=== PATIENT | female | born 1970 | race Caucasian/White ===

== ENCOUNTER 2017-06-21 23:19 | Emergency (ER) | payer OTHER ==
[~2017-06-21] VITALS: Ht 170.2 cm; Wt 136.4 kg
[~2017-06-21 23:19] MED LIST: ALBU8.5H2 INHALATION; BENZ-12 PO; DOXY100C2 PO; DULO60CA42 PO; LISI-567 PO; LORA1TAB PO; OXYC5TAB72 PO; PRE20 PO; RANI-426 PO; TRAZ150T72 PO
[2017-06-21 23:27] VITALS: BP 161/102; PULSE 111; RESP 22; O2SAT 99
--- NOTE | 2017-06-21 23:33 | ED.REPORT ---
HPI-Chest Pain 40 and Over Date of Service Jun 21, 2017 ED Provider: Fady Sanders MD A 46 year old female with a history of morbid obesity, anxiety, asthma, hypertension, mitral valve prolapse, COPD, and diabetes mellitus presents to the ED with chest heaviness that began 3 hours prior to arrival. The pain radiates to her left biceps. Symptoms associated with the chest pain include heart palpations, nausea, SOB, and a recent cough. She took Maalox this evening to help relieve her indigestion. Patient is a former smoker. She denies any leg edema, vomiting or abdominal pain. Patient denies any recent injuries. Nursing Notes Stated Complaint: IRREGULAR HEART BEAT,PAIN/CHEST PRESSURE Chief Complaint: Chest Pain Nursing Notes Reviewed: Yes Allergies: Coded Allergies: aspirin (Verified Allergy, Unknown, Anaphylaxis, 04/22/16) erythromycin base (Verified Allergy, Unknown, 04/22/16) ketorolac tromethamine (Verified Allergy, Unknown, Anaphylaxis, 04/22/16) Uncoded Allergies: MSG (Allergy, Severe, Anaphylaxis, 12/14/13) "MYCINS" (Allergy, Unknown, 05/09/14) Scheduled Albuterol HFA (Proair HFA) 8.5 Gm Hfa.aer.ad 2 PUFFS INHALATION Q4H Doxycycline Hyclate (Doxycycline Hyclate) 100 Mg Capsule 100 MG PO BID Duloxetine (Cymbalta) 60 Mg Capsule. 60 MG PO DAILY Lisinopril (Lisinopril) 20 Mg Tablet 20 MG PO DAILY Omeprazole (Omeprazole) 20 Mg Tablet.dr 20 MG PO BID Prednisone (PredniSONE) 20 Mg Tablet 40 MG PO DAILY Ranitidine (Ranitidine) 75 Mg Tablet 75 MG PO DAILY Trazodone (Trazodone) 150 Mg Tablet 150 MG PO HS Scheduled PRN Benzonatate (Tessalon Perle) 100 Mg Capsule 100 MG PO TID PRN PRN For Cough Lorazepam (Lorazepam) 1 Mg Tablet 1 MG PO TID PRN PRN For Anxiety oxyCODONE (oxyCODONE) 5 Mg Tablet 5 MG PO Q4H PRN PRN For Pain General Time Seen by MD: 23:32 Chief Complaint Chest pain Hx Obtained From: Patient Arrived By: Walk-in Sudden in Onset?: No Onset Occurred: 1 - 4 hours ago (3 hours) Symptom Duration: Since onset Location: : Chest left: Chest right Quality: Heaviness Radiation: : Arm left Migration/Movement: Reports: None Severity: Current: Moderate Severity: Maximum: Moderate Associated with: Reports: Cough, non-productive, Nausea, Palpitations, Shortness of Breath, Denies: Vomiting Pertinent Negative: Pt denies other symptoms Recent Healthcare: No recent doctor visit, No recent hospitalization Risk Factors )( CAD Risk Stratification Diabetes mellitus Hypertension Risk factors reviewed )( TAD Risk Stratification Hypertension Risk factors reviewed )( PE Risk Stratification Risk factors reviewed Past Medical History Past Medical History Notes: Admit March 2016 for asthma exacerbation Past Medical History 1. Hypertension 2. Diabetes mellitus 3. Asthma 4. COPD 5. Cancer 6. Mitral valve prolase 7. Morbid obesity 8. Fibromyalgia 9. Pneumonia Past Surgical History 1. Appendectomy 2. Cholecystectomy 3. Hysterectomy Smoking History Former Smoker (4 years) Social History Alcohol Use: Denies alcohol use Drug Use: THC Other Social History: Good social support, Local resident Ambulatory Status Independent Review of Systems Respiratory: Reports: Non-productive cough, Shortness of breath Cardiovascular: Reports: Chest pain, Palpitations GI: Reports: Nausea, Denies: Abdominal pain, Vomiting Musculoskeletal: Denies: Extremity swelling Complete sys rev & neg: except as marked. Physical Exam Initial Vital Signs Vital Signs (First) Date Time Temp Pulse Resp B/P Pulse Ox O2 Delivery O2 Flow Rate FiO2 06/21/17 23:27 36.8 111 22 161/102 99 Room Air 06/21/17 23:57 2 Initial VS: Reviewed Head / Eyes: Atraumatic, Normocephalic, PERRL Neck: Supple, Non-tender, Full range of motion Extremities: Vascular intact, Neuro intact, No swelling, No tenderness Skin: Warm, Dry, No cyanosis Neurologic: Alert, Oriented, Nonfocal Psychiatric: Mood/affect normal, Behavior normal, Normal thought content General/Constitutional: Awake, Alert Distress / Hydration: Positive: Distress moderate Respiratory / Chest: Atraumatic, Breath sounds NL, Breath sounds = bilat RESPIRATORY: Splinting/ grunting Cardiovascular: Heart rate NL, Regular rhythm, Heart sounds NL Abdomen: Atraumatic, Soft, Non-tender Interpretation & Diagnostics Lab Results Interpretation Result Diagram: 06/21/17 2345 06/21/17 2345 Test 06/21/17 23:45 06/22/17 01:47 White Blood Count 11.4th/mm3 (3.8-10.1) Red Blood Count 4.49mil/mm3 (3.90-5.20) Hemoglobin 12.7g/dL (12.0-15.6) Hematocrit 37.4% (35.0-46.0) Mean Corpuscular Volume 83.3fL (81-100) Mean Corpuscular Hemoglobin 28.3pg (27.0-35.0) Mean Corpuscular Hemoglobin Concent 34.0% (32.0-37.0) Red Cell Distribution Width 14.0% (12.3-15.4) Platelet Count 373bil/L (150-400) Neutrophils (%) (Auto) 63.4% (40-74) Lymphocytes (%) (Auto) 23.9% (14-46) Monocytes (%) (Auto) 7.2% (4-12) Eosinophils (%) (Auto) 4.7% (0-5) Basophils (%) (Auto) 0.3% (0-3) Prothrombin Time 9.8sec (8.1-12.5) Prothromb Time International Ratio 0.92ratio Activated Partial Thromboplast Time 27.6sec (22.8-33.0) D-Dimer < 0.50mg/L FEU (<0.50) Sodium Level 139mEq/L (134-144) Potassium Level 3.7mEq/L (3.5-5.2) Chloride Level 97mEq/L (97-108) Carbon Dioxide Level 21mmol/L (18-29) Blood Urea Nitrogen 9mg/dL (6-24) Creatinine 0.71mg/dL (0.57-1.00) Estimat Glomerular Filtration Rate 128mL/min (>59) Glucose Level 160mg/dL (60-99) Calcium Level 9.8mg/dL (8.5-10.1) Magnesium Level 1.7mg/dL (1.6-2.6) Total Bilirubin 0.2mg/dL (0.0-1.2) Aspartate Amino Transf (AST/SGOT) 13U/L (0-50) Alanine Aminotransferase (ALT/SGPT) 22U/L (0-32) Alkaline Phosphatase 86U/L (25-150) Pro-B-Type Natriuretic Peptide 63.91pg/mL (0-249) Total Protein 7.3g/dL (6.4-8.4) Albumin 4.2g/dL (3.4-5.0) Troponin T 0.010ug/L (0.0-0.011) Hold Richardson Top Tube Received (Received) ECG Interpretation ECG Interpretation: Sinus Tachycardia Rate 102 bpm When compared to prior dated 06/21/17 - Now tachycardic Time: 23:34 Interpreted by: ED physician X-Ray Chest Interpretation Chest Xray Interpretation: No acute abnormalities Interpretation / Wet Read by: Wet read ED physician Re-Eval/Medical Decision Med Decision/Clinical Course 47-year-old presents with chest pain, after a course of doxycycline and cause some stomach upset at the time. Her evaluation here shows negative enzymes 2, nonspecifically abnormal but non-changing cardiogram, negative d-dimer, and no other significant findings. I do not feel this is anginal given her clinical story and the above findings. Likewise, there is no reason to suspect pulmonary embolus. Treating empirically as esophagitis with spasm with established intolerance to doxycycline with immediate esophageal and abdominal pain at the time. Discharged in stable condition for follow-up with PCP. Recommend stress testing at the earliest opportunity. Time of Eval: 01:26 Re-Evaluation/Progress Note: Patient is re-evaluated following reassuring lab work, EKG and chest X-ray. Will repeat Trop. Time of Eval: 02:40 Patient Status: Condition improved Re-Evaluation/Progress Note: Discussed findings with the patient. All questions about the treatment plan are addressed. The patient understands and agrees with the intended treatment plan. Counseled Regarding: Diagnosis, Lab results, Need for follow-up, When/why to return to ED Discharge & Departure Primary Impression: Non-cardiac chest pain Additional Impression: Esophagitis due to doxycycline Disposition: Home Discharge Condition All VS Reviewed: Yes Condition: Stable Patient Instructions: Esophageal Spasm (ED) Additional Instructions: This pain does not appear to be cardiac in origin. Your enzymes are negative twice, and EKG is unchanged. The completion of this evaluation requires some form of a stress test. Your doctor can arrange that in the office. Likewise, there is no evidence of clot or pulmonary embolus. I suspect your pain comes from esophageal spasm, probably set up initially by the doxycycline. Begin omeprazole twice daily for a month. Follow-up with your doctor in the office. Return if any immediate issues. Referrals: OTHER,PHYSICIAN (PCP) Scribe Attestation Portions of this note were transcribed by Naomi Gottlieb. I, Dr. Sanders personally performed the history, physical exam and medical decision-making; I reviewed and confirmed the accuracy of the information in the transcribed note. Signed by: Nini Correa, 06/22/17 0240. Fady Sanders MD Jun 21, 2017 23:33 NAOMI GOTTLIEB Jun 21, 2017 23:36
[2017-06-21] MEDS ORDERED: Ondansetron 2 mg/mL 2 mL Inj IVPUSH ONE (23:55)
[2017-06-21] MEDS ORDERED: Nitroglycerin 2% 1 Gm Ointment TOPICAL ONE (23:55)
[2017-06-21] MEDS ORDERED: Pantoprazole 40 mg ER24 Tablet PO ONE (23:55)
[2017-06-21 23:57] VITALS: BP 129/77; PULSE 101; RESP 22; O2SAT 96
[2017-06-22 00:01] LABS: BASOPHILS % (AUTO) 0.3 % (0-3); EOSINOPHILS % (AUTO) 4.7 % (0-5); MONOCYTES % (AUTO) 7.2 % (4-12); Mean Corpuscular Hemoglobin 28.3 pg (27.0-35.0); Mean Corpuscular Volume 83.3 fL (81-100); NEUTROPHILS % (AUTO) 63.4 % (40-74); Platelet Count 373 bil/L (150-400)
[2017-06-22 00:28] LABS: D-Dimer < 0.50 mg/L FEU (<0.50); INR 0.92 ratio
[2017-06-22 00:43] VITALS: BP 156/104; PULSE 101; RESP 16; O2SAT 97
[2017-06-22 00:44] LABS: Magnesium 1.7 mg/dL (1.6-2.6); TROPONIN T 0.01 ug/L (0.0-0.011)
[2017-06-22 01:54] VITALS: BP 139/41; PULSE 110; RESP 20; O2SAT 97
[2017-06-22] MEDS ORDERED: OMEP20TA86 PO (02:38)
[2017-06-22 02:46] VITALS: BP 139/41; PULSE 110; RESP 18; O2SAT 97
--- NOTE | 2017-06-22 11:53 | DRSVH ---
PROCEDURE: X-RAY CHEST ONE VIEW, PORTABLE ([id number]) INDICATIONS: CHEST PAIN TECHNIQUE: One view of the chest was acquired. COMPARISON: [facility], CR, XR CHEST 1VW (PORTABLE), 06/17/2016, 15:32. FINDINGS: Surgical changes and devices: None. Lungs and pleura: No pleural effusions or pneumothorax. Lungs are clear. Mediastinum: Mediastinal contours appear normal. Heart size is normal. Bones and chest wall: No suspicious bony lesions. Overlying soft tissues appear unremarkable. IMPRESSION: No acute cardiopulmonary disease. Dictated by: Robert Hoff [facility] Interpreted: Иван Salomon MD on 06/22/2017 at 9:46 Approved by: Иван Salomon M.D. on 06/22/2017 at 11:51
== END 2017-06-22 02:46 | disposition home or self-care (01) ==
LOC: SED 23:19
DX: R07.89 Other chest pain (principal); K20.8 Other esophagitis; T36.4X5A Adverse effect of tetracyclines, initial encounter; I10 Essential (primary) hypertension; E11.9 Type 2 diabetes mellitus without complications; Z85.9 Personal history of malignant neoplasm, unspecified; Z90.710 Acquired absence of both cervix and uterus; Z87.891 Personal history of nicotine dependence; Z79.899 Other long term (current) drug therapy; Z88.1 Allergy status to other antibiotic agents; Z88.8 Allergy status to other drugs, medicaments and biological substances
CPT/HCPCS: 36415; 71010; 80053; 83735; 83880; 84484; 85025; 85378; 85610; 85730; 93005; 96374; 96375; 99285; J2060; J2270; J2405

== ENCOUNTER 2017-08-03 17:00 | Emergency (ER) | payer OTHER ==
[~2017-08-03] VITALS: Ht 170.2 cm; Wt 135.9 kg
[~2017-08-03 17:00] MED LIST changes: +OMEP20TA86 PO; +OXYC-530 PO; -OXYC5TAB72 PO
[2017-08-03 17:08] VITALS: PULSE 128; RESP 28
[2017-08-03] MEDS ORDERED: 0.9% Sodium Chloride 1,000 ML IV ONE (17:20)
--- NOTE | 2017-08-03 17:23 | ED.REPORT ---
HPI-General Illness Date of Service Aug 03, 2017 ED Provider: Jimenez Dash MD The pt is a 47 year old female with a history of diabetes, hypertension, fibromyalgia, COPD and pneumonia who presents to the ED complaining of a headache. The pt began experiencing this headache five days ago, which was soon followed by subjective fever, body aches, increased wheezing and dehydration. Her roommate has been experiencing similar flulike symptoms. The pt denies history of DVT or PE, or recent prolonged immobilization. She has not had any calf swelling or tenderness. She has not tried anything for these symptoms. Nursing Notes Stated Complaint: PROBLEMS BREATHING, COUGH, FEVER, CHEST HURTS Chief Complaint: Respiratory Complaints Nursing Notes Reviewed: Yes Allergies: Coded Allergies: aspirin (Verified Allergy, Unknown, Anaphylaxis, 04/22/16) erythromycin base (Verified Allergy, Unknown, 04/22/16) ketorolac tromethamine (Verified Allergy, Unknown, Anaphylaxis, 04/22/16) Uncoded Allergies: MSG (Allergy, Severe, Anaphylaxis, 12/14/13) "MYCINS" (Allergy, Unknown, 05/09/14) Scheduled Albuterol HFA (Proair HFA) 8.5 Gm Hfa.aer.ad 2 PUFFS INHALATION Q4H Albuterol HFA (Proair HFA) 8.5 Gm Hfa.aer.ad 2 PUFFS INHALATION Q4H Doxycycline Hyclate (Doxycycline Hyclate) 100 Mg Capsule 100 MG PO BID Duloxetine (Cymbalta) 60 Mg Capsule.dr 60 MG PO DAILY Lisinopril (Lisinopril) 20 Mg Tablet 20 MG PO DAILY Omeprazole (Omeprazole) 20 Mg Tablet.dr 20 MG PO BID Prednisone (PredniSONE) 20 Mg Tablet 40 MG PO DAILY Prednisone (PredniSONE) 20 Mg Tablet 40 MG PO DAILY Ranitidine (Ranitidine) 75 Mg Tablet 75 MG PO DAILY Trazodone (Trazodone) 150 Mg Tablet 150 MG PO HS Scheduled PRN Benzonatate (Tessalon Perle) 100 Mg Capsule 100 MG PO TID PRN PRN For Cough Lorazepam (Lorazepam) 1 Mg Tablet 1 MG PO TID PRN PRN For Anxiety oxyCODONE (oxyCODONE) 5 Mg Tablet 5 MG PO Q4H PRN PRN For Pain General Time Seen by MD: 17:15 Chief Complaint Headache Hx Obtained From: Patient Arrived By: Walk-in Sudden in Onset?: No Onset Occurred: 5 days ago Symptom Duration: Since onset Recent Healthcare: Recent doctor visit Similar Sx Previous: No Past Medical History Past Medical History Notes: Admit March 2016 for asthma exacerbation Past Medical History 1. Hypertension 2. Diabetes mellitus 3. Asthma 4. COPD 5. Cancer 6. Mitral valve prolase 7. Morbid obesity 8. Fibromyalgia 9. Pneumonia Past Surgical History 1. Appendectomy 2. Cholecystectomy 3. Hysterectomy Smoking History Former Smoker Social History Alcohol Use: Denies alcohol use Drug Use: THC Other Social History: Good social support, Local resident Ambulatory Status Independent Review of Systems dehydration Full Review of Systems Constitutional: Reports: Fever Respiratory: Reports: Non-productive cough, Denies: Shortness of breath Cardiovascular: Denies: Chest pain GI: Reports: Abdominal pain, Diarrhea, Denies: Vomiting Musculoskeletal: Denies: Back pain, Neck pain Skin: Denies Rash Neurologic: Reports: Headache Complete sys rev & neg: except as marked. Physical Exam Vital Signs Vital Signs Date Time Temp Pulse Resp B/P Pulse Ox O2 Delivery O2 Flow Rate FiO2 08/03/17 20:58 36.4 96 20 149/78 99 Room Air 08/03/17 19:38 36.4 96 20 149/78 99 Room Air 08/03/17 18:59 99 12 138/85 98 Room Air 08/03/17 17:08 36.9 128 28 Room Air Initial VS: Reviewed General/Constitutional: Awake, Alert speaking in full sentences Head / Eyes: Atraumatic, Normocephalic, PERRL, EOMI ENT: Atraumatic, Airway patent, Mucous membranes moist Neck: Atraumatic, Supple, Full range of motion Respiratory / Chest: Atraumatic, No respiratory distress scattered expiratory wheeze prolonged expiratory phase Cardiovascular: Regular rhythm, Heart sounds NL Heart Rate / Rhythm: Positive: Tachycardia Abdomen: Atraumatic, Soft, Non-tender Back: Atraumatic, Full range of motion Upper Extremities Upper Extremity / MS: Atraumatic, Full range of motion Lower Extremity / Pelvis / MS: Atraumatic, Full range of motion no calf swelling or tenderness Skin: Atraumatic, Color NL, No rash, Warm, Dry Neurologic: Oriented X3, Speech NL, No motor deficits, No sensory deficits Psychiatric: Affect NL, Mood NL Interpretation & Diagnostics Lab Results Interpretation Result Diagram: 08/03/175 08/03/175 Test 08/03/17 18:35 08/03/17 18:38 White Blood Count 7.2th/mm3 (3.8-10.1) Red Blood Count 5.65mil/mm3 (3.90-5.20) Hemoglobin 15.8g/dL (12.0-15.6) Hematocrit 46.0% (35.0-46.0) Mean Corpuscular Volume 81.4fL (81-100) Mean Corpuscular Hemoglobin 28.0pg (27.0-35.0) Mean Corpuscular Hemoglobin Concent 34.3% (32.0-37.0) Red Cell Distribution Width 14.2% (12.3-15.4) Platelet Count 303bil/L (150-400) Neutrophils (%) (Auto) 55.4% (40-74) Lymphocytes (%) (Auto) 24.9% (14-46) Monocytes (%) (Auto) 12.3% (4-12) Eosinophils (%) (Auto) 6.6% (0-5) Basophils (%) (Auto) 0.4% (0-3) Sodium Level 137mEq/L (134-144) Potassium Level 4.3mEq/L (3.5-5.2) Chloride Level 94mEq/L (97-108) Carbon Dioxide Level 21mmol/L (18-29) Blood Urea Nitrogen 20mg/dL (6-24) Creatinine 0.62mg/dL (0.57-1.00) Estimat Glomerular Filtration Rate 149mL/min (>59) Glucose Level 180mg/dL (60-99) Calcium Level 10.2mg/dL (8.5-10.1) Total Bilirubin 0.8mg/dL (0.0-1.2) Aspartate Amino Transf (AST/SGOT) 33U/L (0-50) Alanine Aminotransferase (ALT/SGPT) 50U/L (0-32) Alkaline Phosphatase 114U/L (25-150) Troponin T < 0.010ug/L (0.0-0.011) Total Protein 8.8g/dL (6.4-8.4) Albumin 4.7g/dL (3.4-5.0) Human Chorionic Gonadotropin, Qual Negative (Negative) Lactic Acid Level 1.6mmol/L (0.4-2.0) ECG Interpretation ECG Interpretation: sinus tachycardia with a rate of 177 normal axis normal interval no ST segment elevation no T wave inversions when compared to previous dated 06/21/2017, pt is now increasingly tachycardic Time: 17:34 Interpreted by: ED physician X-Ray Chest Interpretation Chest Xray Interpretation: IMPRESSION: 1. No acute cardiopulmonary disease. Dictated by: Jaswant Arellano M.D. on 08/03/2017 at 19:00 Approved by: Jaswant Arellano M.D. on 08/03/2017 at 19:02 Interpretation / Wet Read by: Interpret - Radiologist Re-Eval/Medical Decision Med Decision/Clinical Course The pt is a 47 year old female with a history of diabetes, hypertension, fibromyalgia, COPD and pneumonia who presents to the ED complaining of a headache. The pt began experiencing this headache five days ago, which was soon followed by subjective fever, body aches, increased wheezing and dehydration. Her roommate has been experiencing similar flulike symptoms. The pt denies history of DVT or PE, or recent prolonged immobilization. She has not had any calf swelling or tenderness. She has not tried anything for these symptoms. Upon arrival the patient was initially tachycardic with significant wheezing and decreased air movement throughout both lung jolly. She was afebrile and otherwise in no apparent distress. She received the below medications with good effect: IV fluids, two DuoNebs, and 40 of Prednisone given in ED. Upper studies notable as below: CBC unremarkable, no leukocytosis CMP relatively unremarkable, mild hypercalcemia Mildly elevated ALT at 50 Lactic acid within normal limits negative Glucose elevated at 180 Troponin negative Chest X-Ray: IMPRESSION: 1. No acute cardiopulmonary disease. EKG: sinus tachycardia with a rate of 177 normal axis normal interval no ST segment elevation no T wave inversions when compared to previous dated 06/21/2017, pt is now increasingly tachycardic After being treated with steroids, breathing treatments and IV fluids the patient's tachycardia resolved. She reported feeling dramatically better. Repeat examination of her lungs revealed ongoing mild wheezing though markedly improved air movement. She stated that she felt better and would like to go home. No evidence of pneumonia on chest x-ray. No evidence of pneumothorax. History is not suggestive of pulmonary embolism though I did consider this given her degree of tachycardia. Being said, the overall presentation is most consistent with viral illness and acute COPD exacerbation. She has no recent major pulmonary embolism risk factors and I do not feel that workup for pulmonary embolism is indicated given the overall clinical picture. EKG demonstrated no arrhythmias and troponin was negative R Johanna against acute coronary syndrome. I suspect that there is some degree of dehydration as she improved significantly with IV fluids as well. Patient was road tested and maintained good oxygen saturation on room air. She has been discharged with a five-day course of prednisone and albuterol MDI with spacer. She will follow closely with her primary care physician. Prior to discharge follow-up and return precautions were reviewed in detail with the patient who verbalized understanding and agreement with the plan. The patient was discharged in stable condition. Source of Hx: Old records Time of Eval: 19:40 Patient Status: Condition improved Re-Evaluation/Progress Note: Pt rechecked, who is resting. The diagnosis and plan for discharge are discussed. The pt understands and agrees with the plan. All questions are addressed at this time. Counseled Regarding: Diagnosis, Lab results, Need for follow-up, When/why to return to ED Discharge & Departure Primary Impression: Wheezing Additional Impressions: Shortness of breath COPD exacerbation Respiratory distress Body aches Disposition: Home Discharge Condition All VS Reviewed: Yes Condition: Stable Patient Instructions: Shortness of Breath (ED), Wheezing (ED) Additional Instructions: Thank you for seeking care at the emergency room. Our primary goal today in the Emergency Department was to evaluate you for any life-threatening conditions. Your evaluation was reassuring. You will be discharged with a prescription for Albuterol and Prednisone. Use the nebulizer every 2 to 4 hours as needed. Take the Prednisone as directed. You should follow-up with your primary doctor in the next week. You should return to the Emergency Department immediately if you develop fevers , vomiting, cough, shortness of breath, chest pain, lightheadedness, weakness or any other concerning signs or symptoms. Thank you for letting us partake in your care today. Referrals: OTHER,PHYSICIAN (PCP) Scribe Attestation Portions of this note were transcribed by Nisha Gilmore. I, Dr. Dash personally performed the history, physical exam and medical decision-making; I reviewed and confirmed the accuracy of the information in the transcribed note. Jimenez Dash MD Aug 03, 2017 17:23 NISHA GILMORE Aug 03, 2017 18:10
[2017-08-03 18:40] LABS: BASOPHILS % (AUTO) 0.4 % (0-3); EOSINOPHILS % (AUTO) 6.6 % (0-5); MONOCYTES % (AUTO) 12.3 % (4-12); Mean Corpuscular Volume 81.4 fL (81-100); NEUTROPHILS % (AUTO) 55.4 % (40-74); Platelet Count 303 bil/L (150-400)
[2017-08-03 18:59] VITALS: BP 138/85; PULSE 99; RESP 12; O2SAT 98
--- NOTE | 2017-08-03 19:05 | DRSVH ---
PROCEDURE: X-RAY CHEST ONE VIEW, PORTABLE ([id number]) INDICATIONS: cough TECHNIQUE: One view of the chest was acquired. COMPARISON: [facility], CR, XR CHEST 1VW (PORTABLE), 06/21/2017, 23:31. FINDINGS: Surgical changes and devices: None. Lungs and pleura: No pleural effusions or pneumothorax. Lungs are clear. Mediastinum: Mediastinal contours appear normal. Heart size is normal. Bones and chest wall: No suspicious bony lesions. Overlying soft tissues appear unremarkable. IMPRESSION: 1. No acute cardiopulmonary disease. Dictated by: Jaswant Arellano M.D. on 08/03/2017 at 19:00 Approved by: Jaswant Arellano M.D. on 08/03/2017 at 19:02
[2017-08-03 19:12] LABS: TROPONIN T < 0.010 ug/L (0.0-0.011)
[2017-08-03 19:38] VITALS: BP 149/78; PULSE 96; RESP 20; O2SAT 99
[2017-08-03] MEDS ORDERED: ALBU8.5H2 INHALATION (19:44)
[2017-08-03] MEDS ORDERED: PRE20 PO (19:44)
[2017-08-03] MEDS ORDERED: predniSONE 20 mg Tablet PO ONE (19:45)
[2017-08-03] MEDS ORDERED: Albuterol-Ipratropium 3 mL Inhalation Solution NEB ONE (19:45)
[2017-08-03] MEDS ORDERED: Promethazine Inj 12.5 MG in Dextrose 5%-Pha MIX 50 ML IV ONE (20:00)
[2017-08-03 20:58] VITALS: BP 149/78; PULSE 96; RESP 20; O2SAT 99
== END 2017-08-03 20:43 | disposition home or self-care (01) ==
LOC: SED 17:00
DX: J44.1 Chronic obstructive pulmonary disease with (acute) exacerbation (principal); R52 Pain, unspecified; I10 Essential (primary) hypertension; E11.9 Type 2 diabetes mellitus without complications; Z87.891 Personal history of nicotine dependence; Z90.710 Acquired absence of both cervix and uterus; Z88.1 Allergy status to other antibiotic agents; Z88.8 Allergy status to other drugs, medicaments and biological substances
CPT/HCPCS: 36415; 71010; 80053; 83605; 84484; 84703; 85025; 93005; 96360; 99285; J7030

== ENCOUNTER 2017-08-05 22:00 | Emergency (ER) | payer OTHER ==
[~2017-08-05] VITALS: Ht 167.6 cm; Wt 131.4 kg
[2017-08-05 22:11] VITALS: BP 163/99; PULSE 99; RESP 16; O2SAT 96
[2017-08-05 23:03] LABS: BASOPHILS % (AUTO) 0.4 % (0-3); EOSINOPHILS % (AUTO) 4.2 % (0-5); MONOCYTES % (AUTO) 11.3 % (4-12); Mean Corpuscular Hemoglobin 28.7 pg (27.0-35.0); Mean Corpuscular Volume 81.5 fL (81-100); NEUTROPHILS % (AUTO) 36.8 % (40-74); Platelet Count 319 bil/L (150-400)
--- NOTE | 2017-08-05 23:09 | ED.REPORT ---
HPI-General Illness Date of Service Aug 05, 2017 ED Provider: Lonnie Yu MD The pt is a 47 year old female with a history of diabetes, hypertension, fibromyalgia, COPD and pneumonia who presents to the ED complaining of palpitations, onset a few hours ago while she was getting a stress test, which resulted normal. She also got an ECG at the onset of her sx which was also normal. After the test, the pt experienced shaking, anxiety, nausea, several episodes of vomiting, chills, diaphoresis, and headache that came on just prior to arrival. In the ED, she also reports pressure on her chest and throbbing pain under her left breast that worsens with deep breathing. She has also had a cough since last week. The pt was seen at the ED 3 days ago for a headache and significant wheezing. She was given a breathing treatment which improved her sx. She was discharged with an albuterol and prednisone. Nursing Notes Stated Complaint: DIZZY,SHORT OF BREATH,RACING HEART Chief Complaint: Chest Pain Nursing Notes Reviewed: Yes Allergies: Coded Allergies: aspirin (Verified Allergy, Unknown, Anaphylaxis, 08/05/17) erythromycin base (Verified Allergy, Unknown, 08/05/17) ketorolac tromethamine (Verified Allergy, Unknown, Anaphylaxis, 08/05/17) prednisone (Verified Adverse Reaction, Intermediate, anxiety, 08/05/17) Uncoded Allergies: MSG (Allergy, Severe, Anaphylaxis, 12/14/13) "MYCINS" (Allergy, Unknown, 05/09/14) Scheduled Albuterol HFA (Proair HFA) 8.5 Gm Hfa.aer.ad 2 PUFFS INHALATION Q4H Albuterol HFA (Proair HFA) 8.5 Gm Hfa.aer.ad 2 PUFFS INHALATION Q4H Doxycycline Hyclate (Doxycycline Hyclate) 100 Mg Capsule 100 MG PO BID Duloxetine (Cymbalta) 60 Mg Capsule.dr 60 MG PO DAILY Lisinopril (Lisinopril) 20 Mg Tablet 20 MG PO DAILY Omeprazole (Omeprazole) 20 Mg Tablet.dr 20 MG PO BID Prednisone (PredniSONE) 20 Mg Tablet 40 MG PO DAILY Prednisone (PredniSONE) 20 Mg Tablet 40 MG PO DAILY Ranitidine (Ranitidine) 75 Mg Tablet 75 MG PO DAILY Trazodone (Trazodone) 150 Mg Tablet 150 MG PO HS Scheduled PRN Benzonatate (Tessalon Perle) 100 Mg Capsule 100 MG PO TID PRN PRN For Cough Lorazepam (Lorazepam) 1 Mg Tablet 1 MG PO TID PRN PRN For Anxiety oxyCODONE (oxyCODONE) 5 Mg Tablet 5 MG PO Q4H PRN PRN For Pain General Time Seen by MD: 23:02 Chief Complaint Other (palpitations) Hx Obtained From: Patient Arrived By: Walk-in Sudden in Onset?: Yes Onset Occurred: 1 - 4 hours ago Symptom Duration: Since onset Location: : Chest Quality: Pressure Radiation: : Does not radiate Severity: Current: Mild Severity: Maximum: Mild Recent Healthcare: Recent doctor visit Past Medical History Past Medical History Notes: Admit March 2016 for asthma exacerbation Past Medical History 1. Hypertension 2. Diabetes mellitus 3. Asthma 4. COPD 5. Cancer 6. Mitral valve prolase 7. Morbid obesity 8. Fibromyalgia 9. Pneumonia Past Surgical History 1. Appendectomy 2. Cholecystectomy 3. Hysterectomy Smoking History Former Smoker Social History Alcohol Use: Denies alcohol use Drug Use: THC Other Social History: Good social support, Local resident Ambulatory Status Independent Review of Systems Full Review of Systems Constitutional: Reports: Chills Respiratory: Reports: Non-productive cough Cardiovascular: Reports: Chest pain, Palpitations GI: Reports: Nausea, Vomiting Skin: Reports Diaphoresis Neurologic: Reports: Headache, Shaking Complete sys rev & neg: except as marked. Physical Exam Vital Signs Vital Signs Date Time Temp Pulse Resp B/P Pulse Ox O2 Delivery O2 Flow Rate FiO2 08/05/17 22:11 99 16 163/99 96 Room Air Initial VS: Reviewed, Vital signs abnormal Head / Eyes: Atraumatic, Normocephalic, PERRL Neck: Supple, Non-tender, Full range of motion Abdomen / GI: Soft, Non-tender, No guarding, No rebound, No distention Extremities: Vascular intact, Neuro intact, No swelling, No tenderness Skin: Warm, Dry, No cyanosis Neurologic: Alert, Oriented, Nonfocal General/Constitutional: Awake, Alert, Well appearing, Cooperative Behavior: Positive: Anxious Appearance / Presentation: Positive: Obese Respiratory / Chest: Atraumatic, Breath sounds NL, Breath sounds = bilat, No respiratory distress, No rales, No rhonchi, No wheezing Chest Wall / Ribs: Positive: Chest tender lower L Occasional coughing Cardiovascular: Heart rate NL, Regular rhythm, Heart sounds NL, No gallop, No murmurs, No rubs No peripheral edema Interpretation & Diagnostics Lab Results Interpretation Result Diagram: 08/05/17 2301 08/05/17 2301 Test 08/05/17 23:01 White Blood Count 7.6th/mm3 (3.8-10.1) Red Blood Count 4.43mil/mm3 (3.90-5.20) Hemoglobin 12.7g/dL (12.0-15.6) Hematocrit 36.1% (35.0-46.0) Mean Corpuscular Volume 81.5fL (81-100) Mean Corpuscular Hemoglobin 28.7pg (27.0-35.0) Mean Corpuscular Hemoglobin Concent 35.2% (32.0-37.0) Red Cell Distribution Width 13.7% (12.3-15.4) Platelet Count 319bil/L (150-400) Neutrophils (%) (Auto) 36.8% (40-74) Lymphocytes (%) (Auto) 46.8% (14-46) Monocytes (%) (Auto) 11.3% (4-12) Eosinophils (%) (Auto) 4.2% (0-5) Basophils (%) (Auto) 0.4% (0-3) Sodium Level 137mEq/L (134-144) Potassium Level 3.6mEq/L (3.5-5.2) Chloride Level 94mEq/L (97-108) Carbon Dioxide Level 23mmol/L (18-29) Blood Urea Nitrogen 14mg/dL (6-24) Creatinine 0.63mg/dL (0.57-1.00) Estimat Glomerular Filtration Rate 146mL/min (>59) Glucose Level 236mg/dL (60-99) Calcium Level 9.5mg/dL (8.5-10.1) Magnesium Level 1.8mg/dL (1.6-2.6) Total Bilirubin 0.4mg/dL (0.0-1.2) Aspartate Amino Transf (AST/SGOT) 20U/L (0-50) Alanine Aminotransferase (ALT/SGPT) 32U/L (0-32) Alkaline Phosphatase 83U/L (25-150) Troponin T 0.010ug/L (0.0-0.011) Total Protein 7.1g/dL (6.4-8.4) Albumin 4.2g/dL (3.4-5.0) Thyroid Stimulating Hormone (TSH) 2.600uIU/mL (0.450-4.500) Free Thyroxine 1.27ng/dL (0.82-1.77) ECG Interpretation ECG Interpretation: Normal sinus rhythm. Rate 97. Probable left atrial enlargement Time: 22:09 Interpreted by: ED physician X-Ray Chest Interpretation Chest Xray Interpretation: Normal View: Portable, 1 view Interpretation / Wet Read by: Wet read ED physician Re-Eval/Medical Decision Med Decision/Clinical Course This patient's symptoms are likely due to the Aminophyllin which was used during her nuclear medicine heart scan. Her scan was normal. I see no evidence of serious illness at this time. Source of Hx: Old records Time of Eval: 02:19 Re-Evaluation/Progress Note: Rechecked pt. Discussed lab results, imaging results, diagnosis and plan to discharge. Pt understands and agrees with the plan. F/U instruction and RTER warning given. All questions addressed. Counseled Regarding: Diagnosis, Lab results, Need for follow-up, When/why to return to ED Discharge & Departure Primary Impression: Medication side effect Encounter type: initial encounter Qualified Code: T88.7XXA - Unspecified adverse effect of drug or medicament, initial encounter Additional Impressions: Anxiety Chest pain with low risk for cardiac etiology Disposition: Home Discharge Condition All VS Reviewed: Yes Condition: Stable Patient Instructions: Anxiety (ED) Additional Instructions: One of the medications that was used in your nuclear medicine heart scan causes jitteriness and rapid heart rate. It is fairly long acting, but should be worn off by the morning. You received Ativan (lorazepam) for your anxiety. Home to sleep. Follow-up with your regular doctor if you have persistent symptoms. It seems quite unlikely that your chest discomfort is related to coronary artery disease. Referrals: Ginny Maguire MD (PCP) Scribe Attestation Portions of this note were transcribed by Jamel Velasquez. I,, personally performed the history,physical exam and medical decision-making;I reviewed and confirmed the accuracy of the information in the transcribed note. Signed by Nini Encarnacion. 08/06/17 copies to: Ginny Maguire MD, Howard L MD Aug 05, 2017 23:09 Jamel Velasquez Aug 05, 2017 23:47
[2017-08-05 23:41] LABS: Magnesium 1.8 mg/dL (1.6-2.6); TROPONIN T 0.01 ug/L (0.0-0.011)
[2017-08-05] MEDS ORDERED: 0.9% Sodium Chloride 1,000 ML IV ONE (23:50)
[2017-08-06] MEDS ORDERED: Ondansetron 2 mg/mL 2 mL Inj IVPUSH PRN (00:05)
[2017-08-06] MEDS ORDERED: LORazepam 1 mg Tablet PO ONE (02:25)
[2017-08-06 03:13] VITALS: BP 136/84; PULSE 82; RESP 18; O2SAT 98
--- NOTE | 2017-08-06 07:59 | DRSVH ---
PROCEDURE: X-RAY CHEST ONE VIEW, PORTABLE ([id number]) INDICATIONS: CP TECHNIQUE: One view of the chest was acquired. COMPARISON: [facility], CR, XR CHEST 1VW (PORTABLE), 08/03/2017, 18:41. FINDINGS: Surgical changes and devices: None. Lungs and pleura: No pleural effusions or pneumothorax. Lungs are clear. Mediastinum: Mediastinal contours appear normal. Heart size is normal. Bones and chest wall: No suspicious bony lesions. Overlying soft tissues appear unremarkable. IMPRESSION: No acute disease. Dictated by: Julián Cisneros M.D. on 08/06/2017 at 7:57 Approved by: Julián Cisneros M.D. on 08/06/2017 at 7:58
== END 2017-08-06 02:48 | disposition home or self-care (01) ==
LOC: SED 22:00
DX: F41.9 Anxiety disorder, unspecified (principal); R07.89 Other chest pain; T50.8X5A Adverse effect of diagnostic agents, initial encounter; R00.2 Palpitations; R11.2 Nausea with vomiting, unspecified; R68.83 Chills (without fever); R61 Generalized hyperhidrosis; R51 Headache; R05 Cough; Y93.89 Activity, other specified; Y92.89 Other specified places as the place of occurrence of the external cause; Y99.8 Other external cause status; I10 Essential (primary) hypertension; J44.9 Chronic obstructive pulmonary disease, unspecified; E11.9 Type 2 diabetes mellitus without complications; M79.7 Fibromyalgia; Z87.01 Personal history of pneumonia (recurrent); Z90.49 Acquired absence of other specified parts of digestive tract; Z98.890 Other specified postprocedural states; Z87.891 Personal history of nicotine dependence; Z88.1 Allergy status to other antibiotic agents; Z88.6 Allergy status to analgesic agent; Z88.8 Allergy status to other drugs, medicaments and biological substances
CPT/HCPCS: 36415; 71010; 80053; 82948; 83735; 84439; 84443; 84484; 85025; 93005; 96361; 96374; 96375; 99285; J2060; J2405; J7030